=== PATIENT | male | born 1945 | race Caucasian/White ===

== ENCOUNTER → 2016-11-17 10:31 | Outpatient (CLI) | payer MEDICARE, OTHER ==
[2015-06-04 06:05] VITALS: BMI 28.8
[~2016-11-17 10:31] MED LIST: AMBIEN10 MG PO; ASPIRIN EC81 M1 PO; FISH OIL 1,2001 CAP PO; LIVALO4 MG PO; MULTIPLE VITAMI1 TA1 PO; PRINIVIL20 MG PO; [UNRECOGNIZED DRUG - OTHER] PO
== END | disposition home or self-care (01) ==
LOC: D.CT 10:30
DX: S30.1XXA Contusion of abdominal wall, initial encounter (principal)

== ENCOUNTER → 2018-09-26 13:03 | Outpatient (CLI) | payer MEDICARE, OTHER ==
[2015-06-04 06:05] VITALS: BMI 28.8
== END | disposition home or self-care (01) ==
LOC: D.MRI 13:03
DX: R41.82 Altered mental status, unspecified (principal)